=== PATIENT | female | born 1960 | race American Indian/Alaskan Native ===

== ENCOUNTER 2016-07-06 14:03 | Outpatient (CLI) | payer MEDICARE ==
--- NOTE | 2016-07-06 15:52 | XRay Report ---
RIGHT KNEE THREE VIEWS: 07/06/16 14:03:00 CLINICAL: Right knee pain. FINDINGS: Severe osteoarthritis of the lateral joint space with loss of the joint space and moderately large osteophytes. There is suggestion of a loose body in the lateral joint space. Widening of the medial joint space with minimal medial osteophyte formation. Small patellofemoral joint osteophytes. Normal soft tissues. No joint effusion. No fracture or dislocation. IMPRESSION: Severe osteoarthritis of the lateral joint space with a possible loose body in the joint space.
--- NOTE | 2016-07-06 15:54 | XRay Report ---
RIGHT HIP TWO VIEWS: 07/06/16 14:03:00 CLINICAL: Pain. FINDINGS: No fracture or dislocation.Mild arthritis of the hips with bilateral superior acetabular eburnation mild narrowing of the medial joint space. The pelvic bones are otherwise intact. Normal SI joints. Moderate degenerative changes in the lower lumbar spine. Phleboliths and benign soft tissue calcifications. Surgical sutures in the abdomen and pelvis. IMPRESSION: Mild arthritis of the hips.
--- NOTE | 2016-07-06 15:57 | XRay Report ---
Lumbar spine series: Traction spurs are present in the lower thoracic spine as well as from L3-S1. There is moderate narrowing of the L3-4 L4-5 and L5-S1 interspaces. The vertebral height is well-maintained throughout the lumbar spine and there is no subluxation. The apophyseal joints appear well aligned and generally preserved except for sclerosis and narrowing on the right at L5-S1. Of incidental note is the presence of a gastric band. Impression: 1. Multilevel spondylosis in the lower thoracic and lower lumbar spine. 2. Significant degenerative disc changes from L3-S1.
== END 2016-07-06 14:04 | disposition home or self-care (01) ==
LOC: SPVIMAG 14:03
PROVIDERS: ATTEND Internal Medicine
DX: M54.16 Radiculopathy, lumbar region (principal); M17.11 Unilateral primary osteoarthritis, right knee; M47.897 Other spondylosis, lumbosacral region; I87.8 Other specified disorders of veins; M25.761 Osteophyte, right knee; M25.561 Pain in right knee
CPT/HCPCS: 72110